=== PATIENT | male | born 1960 | race Caucasian/White ===

== ENCOUNTER 2016-10-15 12:38 | Emergency (ER) | payer MEDICAID ==
[~2016-10-15] VITALS: Ht 170.2 cm; Wt 64.7 kg
[~2016-10-15 12:38] MED LIST: LORA-474 PO
[2016-10-15 12:49] VITALS: BP 137/79; PULSE 73; RESP 16; TEMP 97.9; O2SAT 97
[2016-10-15] MEDS ORDERED: SODIUM CHLOR 0.9% 1000 ML INJ 1,000 ML IV SCH (13:01)
[2016-10-15 13:10] VITALS: O2SAT 97
[2016-10-15] MEDS ORDERED: OXYB5TAB10 PO (13:13)
[2016-10-15] MEDS ORDERED: GEMF600T PO (13:13)
[2016-10-15] MEDS ORDERED: MIRT30TA PO (13:13)
[2016-10-15] MEDS ORDERED: LISI10TA3 PO (13:13)
[2016-10-15] MEDS ORDERED: NOVONP2 SQ (13:13)
[2016-10-15] MEDS ORDERED: ATOR40TA16 PO (13:13)
[2016-10-15] MEDS ORDERED: DILA100C PO (13:13)
[2016-10-15] MEDS ORDERED: LORA2TAB7 PO (13:13)
[2016-10-15] MEDS ORDERED: XARE20TA PO (13:13)
[2016-10-15] MEDS ORDERED: ASAC800T PO (13:13)
[2016-10-15] MEDS ORDERED: LEVEMIR SQ (13:13)
[2016-10-15] MEDS ORDERED: OMEP20TA PO (13:13)
[2016-10-15] MEDS ORDERED: VIMP200T PO (13:13)
[2016-10-15] MEDS ORDERED: METF1000 PO (13:13)
[2016-10-15] MEDS ORDERED: SODIUM CHLORIDE 0.9% FLUSH 10 ML FLUSH IV FLUSH PRN (13:15)
[2016-10-15] MEDS ORDERED: MORPHINE SULFATE 4 MG/ML INJ IV PUSH ONE (13:15)
[2016-10-15] MEDS ORDERED: ONDANSETRON HCL 4 MG/2 ML VIAL IVP ONE (13:15)
[2016-10-15] MEDS ORDERED: FAMOTIDINE 20 MG/2 ML VIAL IV PUSH ONE (13:15)
--- NOTE | 2016-10-15 13:15 | PD ---
HPI Chief Complaint: Abdominal Pain Time Seen by Provider: 12:57 Travel History International Travel<30 days: No Contact w/Intl Traveler<30days: No Traveled to known affect area: No History of Present Illness HPI Patient is a 55-year-old male who presents to emergency room with complaints of abdominal pain. Patient reports that he has history of abdominal hernia surgery in the past by Dr Hinton. Reports that he also has history of gastroenteritis/colitis - reports that he went to Dr. Lane's office today for a follow up visit and told him of his abdominal pain. As per patient, he has had diffuse abdominal pain over the past few days. Reports no nausea or vomiting with his symptoms. Denies diarrhea, reports that he has been making a small amount of stool. Patient was instructed by his GI doctor to come straight to the emergency room for a CAT scan of the abdomen and pelvis as well as for lab work. PFSH Past Medical History Hx Anticoagulant Therapy: Yes Arthritis: No Asthma: No Anxiety: Yes Depression: No Heart Rhythm Problems: No Cancer: No Cardiovascular Problems: Yes (HTN) High Cholesterol: Yes Chest Pain: No Congestive Heart Failure: No COPD: No Cerebrovascular Accident: Yes Diabetes: Yes Patient Takes Glucophage: Yes Diminished Hearing: No Endocrine: Yes Gastrointestinal Disorders: Yes (PANCREATITIS) GERD: No Genitourinary: No Headaches: Yes Hiatal Hernia: Yes Hypertension: Yes Immune Disorder: No Implanted Vascular Access Dvce: No Kidney Stones: No Musculoskeletal: Yes (RUE) Neurologic: Yes (EEG STUDIES 11/2014) Reproductive: No Respiratory: No Migraines: Yes Renal Failure: No Seizures: Yes Sleep Apnea: No Thyroid Disease: Yes Ulcer: No Tetanus Vaccination: Unknown Past Surgical History Abdominal Surgery: Yes (HERNIA REPAIR 08/07/15) Other Surgery: No Social History Alcohol Use: No Tobacco Use: No Substance Use: No Allergies-Medications (Allergen,Severity, Reaction): Coded Allergies: Morphine (Verified Allergy, Unknown, 10/15/16) Reported Meds & Prescriptions Reported Meds & Active Scripts Active Reported Ditropan (Oxybutynin Chloride) 5 Mg Tab 5 Mg PO Q12HR Xarelto (Rivaroxaban) 20 Mg Tab 20 Mg PO DAILY Vimpat (Lacosamide) 200 Mg Tab 200 Mg PO BID Omeprazole 20 Mg Tab 20 Mg PO DAILY Novolin N Inj (Insulin Human NPH) 1,000 Unit/10 Ml Vial 2 Units SQ TID Mirtazapine 30 Mg Tab 30 Mg PO HS Metformin (Metformin HCl) 1,000 Mg Tab 1,000 Mg PO BIDPC With meals Lorazepam 2 Mg Tab 2 Mg PO HS Lisinopril 10 Mg Tab 10 Mg PO TID Levemir Inj (Insulin Detemir) 1,000 unit/ 10 ML Vial 15 Units SQ HS Do not mix with any other Insulin. Gemfibrozil 600 Mg Tab 600 Mg PO BIDAC Take 30 minutes prior to breakfast and dinner. Dilantin (Phenytoin Extended) 100 Mg Cap 100 Mg PO QID Atorvastatin (Atorvastatin Calcium) 40 Mg Tab 40 Mg PO HS Asacol HD (Mesalamine) 800 Mg Tab 800 Mg PO TID Swallow whole. Take on an empty stomach. Review of Systems General / Constitutional: No: Fever Eyes: No: Visual changes HENT: No: Headaches Cardiovascular: No: Chest Pain or Discomfort Respiratory: No: Shortness of Breath Gastrointestinal: Positive: Abdominal Pain, No: Nausea, Vomiting Genitourinary: No: Dysuria Musculoskeletal: No: Pain Skin: No Rash Neurologic: No: Weakness Psychiatric: No: Depression Endocrine: No: Polydipsia Hematologic/Lymphatic: No: Easy Bruising Physical Exam Narrative GENERAL: mild distress SKIN: Warm and dry. HEAD: Atraumatic. Normocephalic. EYES: Pupils equal and round. No injection or drainage. ENT: No nasal bleeding or discharge. Mucous membranes pink and moist. NECK: Trachea midline. No JVD. CARDIOVASCULAR: Regular rate and rhythm. No murmur appreciated. RESPIRATORY: No accessory muscle use. Clear to auscultation. Breath sounds equal bilaterally. GASTROINTESTINAL: Abdomen soft,diffusely tender, nondistended. Hepatic and splenic margins not palpable. MUSCULOSKELETAL: No obvious deformities. No clubbing. No cyanosis. No edema. NEUROLOGICAL: Awake and alert. No obvious cranial nerve deficits. Motor grossly within normal limits. Normal speech. PSYCHIATRIC: Appropriate mood and affect; insight and judgment normal. Data Data Last Documented VS Vital Signs Date Time Temp Pulse Resp B/P Pulse Ox O2 Delivery O2 Flow Rate FiO2 10/15/16 13:01 16 10/15/16 12:49 97.9 73 137/79 97 Orders Complete Blood Count With Diff (10/15/16 13:01) Comprehensive Metabolic Panel (10/15/16 13:01) Lipase (10/15/16 13:01) Prothrombin Time / Inr (Pt) (10/15/16 13:01) Act Partial Throm Time (Ptt) (10/15/16 13:01) Urinalysis - C+S If Indicated (10/15/16 13:01) Ct Abd/Pel W Iv Contrast(Rout) (10/15/16 13:01) Iv Access Insert/Monitor (10/15/16 13:01) Ecg Monitoring (10/15/16 13:01) Oximetry (10/15/16 13:01) Morphine Inj (Morphine Inj) (10/15/16 13:15) Ondansetron Inj (Zofran Inj) (10/15/16 13:15) Sodium Chlor 0.9% 1000 Ml Inj (Ns 1000 M (10/15/16 13:01) Sodium Chloride 0.9% Flush (Ns Flush) (10/15/16 13:15) Chest, Single Ap (10/15/16 13:01) Famotidine Inj (Pepcid Inj) (10/15/16 13:15) Oral Contrast - Adult (10/15/16 13:14) Diatrizoate Liq ( Gastroview Liq) (10/15/16 13:35) Ketorolac Inj (Toradol Inj) (10/15/16 14:00) Iohexol 350 Inj (Omnipaque 350 Inj) (10/15/16 14:45) Labs Laboratory Tests Test 10/15/16 10/15/16 13:14 13:29 White Blood Count 9.2 TH/MM3 Red Blood Count 4.52 MIL/MM3 Hemoglobin 9.5 GM/DL Hematocrit 30.3 % Mean Corpuscular Volume 67.1 FL Mean Corpuscular Hemoglobin 20.9 PG Mean Corpuscular Hemoglobin 31.2 % Concent Red Cell Distribution Width 14.5 % Platelet Count 454 TH/MM3 Mean Platelet Volume 8.7 FL Neutrophils (%) (Auto) 67.1 % Lymphocytes (%) (Auto) 24.4 % Monocytes (%) (Auto) 6.2 % Eosinophils (%) (Auto) 1.4 % Basophils (%) (Auto) 0.9 % Neutrophils # (Auto) 6.2 TH/MM3 Lymphocytes # (Auto) 2.2 TH/MM3 Monocytes # (Auto) 0.6 TH/MM3 Eosinophils # (Auto) 0.1 TH/MM3 Basophils # (Auto) 0.1 TH/MM3 CBC Comment AUTO DIFF Differential Comment AUTO DIFF CONFIRMED Prothrombin Time 11.4 SEC Prothromb Time International 1.0 RATIO Ratio Activated Partial 26.1 SEC Thromboplast Time Sodium Level 144 MEQ/L Potassium Level 4.1 MEQ/L Chloride Level 111 MEQ/L Carbon Dioxide Level 25.7 MEQ/L Anion Gap 7 MEQ/L Blood Urea Nitrogen 17 MG/DL Creatinine 0.73 MG/DL Estimat Glomerular Filtration 111 ML/MIN Rate Random Glucose 129 MG/DL Calcium Level 8.7 MG/DL Total Bilirubin 0.3 MG/DL Aspartate Amino Transf 13 U/L (AST/SGOT) Alanine Aminotransferase 18 U/L (ALT/SGPT) Alkaline Phosphatase 144 U/L Total Protein 6.5 GM/DL Albumin 3.1 GM/DL Lipase 250 U/L Urine Collection Type CLEAN CATCH Urine Color YELLOW Urine Turbidity CLEAR Urine pH 6.0 Urine Specific [place] 1.021 Urine Protein NEG mg/dL Urine Glucose (UA) NEG mg/dL Urine Ketones NEG mg/dL Urine Occult Blood NEG Urine Nitrite NEG Urine Bilirubin NEG Urine Leukocyte Esterase NEG Urine WBC 0-2 /hpf Microscopic Urinalysis Comment CULT NOT INDICATED MDM Medical Decision Making Medical Screen Exam Complete: Yes Emergency Medical Condition: Yes Interpretation(s) Vital Signs Date Time Temp Pulse Resp B/P Pulse Ox O2 Delivery O2 Flow Rate FiO2 10/15/16 13:01 16 10/15/16 12:49 97.9 73 16 137/79 97 Differential Diagnosis Abdominal hernia with incarceration, colitis, depression colitis, UTI, small bowel obstruction Narrative Course Patient is a 55-year-old male who presents to emergency room with complaints of abdominal pain for the past few days. Patient was sent in by Dr. Lane for lab work as well as for ct of his abdomen and pelvis for evaluation of his symptoms. Patient reports that he did have history of hernia repair by Dr. Hinton in the past, reports diffuse abdominal pain which has been persistent over the past few days. Laboratory Tests Test 10/15/16 10/15/16 13:14 13:29 White Blood Count 9.2 TH/MM3 (4.0-11.0) Red Blood Count 4.52 MIL/MM3 (4.50-5.90) Hemoglobin 9.5 GM/DL (13.0-17.0) Hematocrit 30.3 % (39.0-51.0) Mean Corpuscular Volume 67.1 FL (80.0-100.0) Mean Corpuscular Hemoglobin 20.9 PG (27.0-34.0) Mean Corpuscular Hemoglobin 31.2 % Concent (32.0-36.0) Red Cell Distribution Width 14.5 % (11.6-17.2) Platelet Count 454 TH/MM3 (150-450) Mean Platelet Volume 8.7 FL (7.0-11.0) Neutrophils (%) (Auto) 67.1 % (16.0-70.0) Lymphocytes (%) (Auto) 24.4 % (9.0-44.0) Monocytes (%) (Auto) 6.2 % (0.0-8.0) Eosinophils (%) (Auto) 1.4 % (0.0-4.0) Basophils (%) (Auto) 0.9 % (0.0-2.0) Neutrophils # (Auto) 6.2 TH/MM3 (1.8-7.7) Lymphocytes # (Auto) 2.2 TH/MM3 (1.0-4.8) Monocytes # (Auto) 0.6 TH/MM3 (0-0.9) Eosinophils # (Auto) 0.1 TH/MM3 (0-0.4) Basophils # (Auto) 0.1 TH/MM3 (0-0.2) CBC Comment AUTO DIFF Differential Comment AUTO DIFF CONFIRMED Prothrombin Time 11.4 SEC (9.8-11.6) Prothromb Time International 1.0 RATIO Ratio Activated Partial 26.1 SEC Thromboplast Time (24.3-30.1) Sodium Level 144 MEQ/L (136-145) Potassium Level 4.1 MEQ/L (3.5-5.1) Chloride Level 111 MEQ/L (98-107) Carbon Dioxide Level 25.7 MEQ/L (21.0-32.0) Anion Gap 7 MEQ/L (5-15) Blood Urea Nitrogen 17 MG/DL (7-18) Creatinine 0.73 MG/DL (0.60-1.30) Estimat Glomerular Filtration 111 ML/MIN Rate (>89) Random Glucose 129 MG/DL (74-106) Calcium Level 8.7 MG/DL (8.5-10.1) Total Bilirubin 0.3 MG/DL (0.2-1.0) Aspartate Amino Transf 13 U/L (15-37) (AST/SGOT) Alanine Aminotransferase 18 U/L (12-78) (ALT/SGPT) Alkaline Phosphatase 144 U/L (45-117) Total Protein 6.5 GM/DL (6.4-8.2) Albumin 3.1 GM/DL (3.4-5.0) Lipase 250 U/L (73-393) Urine Collection Type CLEAN CATCH Urine Color YELLOW (YELLW/STRAW) Urine Turbidity CLEAR (CLEAR) Urine pH 6.0 (5.0-8.5) Urine Specific [place] 1.021 (1.002-1.035) Urine Protein NEG mg/dL (NEG-TRACE) Urine Glucose (UA) NEG mg/dL (NEG) Urine Ketones NEG mg/dL (NEG) Urine Occult Blood NEG (NEG) Urine Nitrite NEG (NEG) Urine Bilirubin NEG (NEG) Urine Leukocyte Esterase NEG (NEG) Urine WBC 0-2 /hpf (0-5) Microscopic Urinalysis Comment CULT NOT INDICATED Labs as well as CT of the abdomen and pelvis ordered for further evaluation symptoms. Vital Signs Date Time Temp Pulse Resp B/P Pulse Ox O2 Delivery O2 Flow Rate FiO2 10/15/16 13:01 16 10/15/16 12:49 97.9 73 16 137/79 97 Last Impressions Chest X-Ray 10/15/16 1301 Signed Impressions: Service Date/Time: Saturday, October 15, 2016 13:04 - CONCLUSION: 1. No acute cardiopulmonary disease. Saqib Paez MD Abdomen/Pelvis CT 10/15/16 1301 Signed Impressions: Service Date/Time: Saturday, October 15, 2016 14:24 - CONCLUSION: 1. No acute findings in the abdomen or pelvis. 2. Polyp or calculus in the gallbladder. 3. Enlarged prostate, increased in size from prior study 2014. 4. Periumbilical hernia no longer seen. 5. Fat-containing left inguinal hernia unchanged. Chung Parra MD Patient reevaluated, patient reports that he had a bowel movement and now feels much better. Patient reports that he has complete resolution of symptoms at this time. I did review all labs and all studies with patient in detail including all incidental findings. A copy patient of his CT report was given to him as he will need to follow-up with all the incidental findings. Signs and symptoms of when to return to the emergency room as needed patient. 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
[2016-10-15 13:27] LABS: AUTOMATED NEUTROPHIL # 6.2 TH/MM3 (1.8-7.7); BASOPHIL # 0.1 TH/MM3 (0-0.2); BASOPHIL % 0.9 % (0.0-2.0); EOSINOPHIL # 0.1 TH/MM3 (0-0.4); EOSINOPHIL % 1.4 % (0.0-4.0); HEMATOCRIT 30.3 % (39.0-51.0); LYMPH % 24.4 % (9.0-44.0); LYMPHOCYTE # 2.2 TH/MM3 (1.0-4.8); MEAN CELL VOLUME 67.1 FL (80.0-100.0); MEAN CORPUSCULAR HEMOGLOBIN 20.9 PG (27.0-34.0); MEAN CORPUSCULAR HGB CONC 31.2 % (32.0-36.0); MONO % 6.2 % (0.0-8.0); NEUT % 67.1 % (16.0-70.0); PLATELET COUNT 454 TH/MM3 (150-450); RED BLOOD COUNT 4.52 MIL/MM3 (4.50-5.90); RED CELL DISTRIBUTION WIDTH 14.5 % (11.6-17.2); WHITE BLOOD COUNT 9.2 TH/MM3 (4.0-11.0)
[2016-10-15 13:28] LABS: CHLORIDE 111 MEQ/L (98-107); HEMO FLAGS AUTO DIFF; POTASSIUM 4.1 MEQ/L (3.5-5.1); SODIUM (NA) 144 MEQ/L (136-145)
[2016-10-15 13:32] LABS: APTT (PATIENT) 26.1 SEC (24.3-30.1); PROTHROMBIN TIME - PATIENT 11.4 SEC (9.8-11.6)
[2016-10-15 13:33] LABS: ANION GAP 7 MEQ/L (5-15); BICARBONATE 25.7 MEQ/L (21.0-32.0); BLOOD UREA NITROGEN 17 MG/DL (7-18)
[2016-10-15 13:35] LABS: BLOOD, URINE NEG (NEG); GLUCOSE,URINE NEG (NEG); KETONE, URINE NEG (NEG); METHOD OF COLLECTION CLEAN CATCH; NITRITE,URINE NEG (NEG); URINE COLOR YELLOW (YELLW/STRAW)
[2016-10-15] MEDS ORDERED: DIATRIZOATE MEGLUM/DIATRIZOATE SOD 9 ML CUP ONE (13:35)
[2016-10-15 13:36] LABS: ALT (GPT) 18 U/L (12-78); AST (GOT) 13 U/L (15-37); GLOMERULAR FILTRATION RATE 111 ML/MIN (>89)
[2016-10-15 13:38] LABS: TOTAL BILIRUBIN ADULT 0.3 MG/DL (0.2-1.0)
[2016-10-15 13:39] LABS: ALKALINE PHOSPHATASE 144 U/L (45-117)
[2016-10-15 13:40] LABS: COMMENT (UR) CULT NOT INDICATED; CULTURE IF INDICATED CULT NOT INDICATED; WBC, URINE 0-2 /hpf (0-5)
--- NOTE | 2016-10-15 13:43 | RADHPO ---
EXAM DATE/TIME: 10/15/2016 13:04 [facility] COMPARISON: CHEST SINGLE AP, February 10, 2016, 20:19. INDICATIONS : Epigastric pain and cold symptoms. MEDICAL HISTORY : Hypercholesterolemia. Rheumatoid arthritis. Seizures. Hypertension. Cerebrovascular disease. Str meenakshi. Diabetic. SURGICAL HISTORY : Hernia repair. ENCOUNTER: Initial ACUITY: 2 days PAIN SCORE: 8/10 LOCATION: chest FINDINGS: A single view of the chest demonstrates the lungs to be symmetrically aerated without evidence of mas s, infiltrate or effusion. The cardiomediastinal contours are unremarkable. Osseous structures are intact. CONCLUSION: 1. No acute cardiopulmonary disease. Saqib Paez MD on October 15, 2016 at 13:41 Board Certified Radiologist. This report was verified electronically.
[2016-10-15 13:54] LABS: SCAN/DIFF AUTO DIFF CONFIRMED
[2016-10-15] MEDS ORDERED: KETOROLAC TROMETHAMINE 30 MG/ML (IVP) VIAL IV PUSH ONE (14:00)
[2016-10-15] MEDS ORDERED: IOHEXOL 350 MG/ML 10 ML VIAL (for RAD DIAG) IV ONE (14:45)
--- NOTE | 2016-10-15 15:25 | RADHPO ---
EXAM DATE/TIME: 10/15/2016 14:24 [facility] COMPARISON: CT ABDOMEN & PELVIS W CONTRAST, January 24, 2015, 23:01. INDICATIONS : Diffuse abdominal pain. IV CONTRAST: 95 cc Omnipaque 350 (iohexol) IV ORAL CONTRAST: Prescribed oral contrast ingested. RADIATION DOSE: 8.50 CTDIvol (mGy) MEDICAL HISTORY : Pancreatitis. Hernia, hiatal. Hypertension.Diabetes. Colitis. SURGICAL HISTORY : Hernia repair. ENCOUNTER: Initial ACUITY: 2 days PAIN SCALE: 10/10 LOCATION: All quadrants. TECHNIQUE: Volumetric scanning of the abdomen and pelvis was performed. Using automated exposure control and ad justment of the mA and/or kV according to patient size, radiation dose was kept as low as reasonably achievable to obtain optimal diagnostic quality images. FINDINGS: LOWER LUNGS: The visualized lower lungs are clear. LIVER: Homogeneous density without lesion. There is no dilation of the biliary tree. 3 mm calculus or polyp in the gallbladder. No pericholecystic inflammatory changes. SPLEEN: Mild splenomegaly measuring 13 cm in craniocaudal dimension. No focal masses. PANCREAS: Within normal limits. KIDNEYS: Normal in size and shape. There is no mass, stone or hydronephrosis. ADRENAL GLANDS: Within normal limits. VASCULAR: Diffuse aortic calcification. Diameter within normal limits. BOWEL/MESENTERY: No evidence of bowel dilatation. No free air or free fluid. Appendix within normal limits. ABDOMINAL WALL: Periumbilical anterior abdominal wall hernia is no longer seen. RETROPERITONEUM: There is no lymphadenopathy. BLADDER: No wall thickening or mass. REPRODUCTIVE: Enlarged prostate measuring 5.1 cm. Increased in size from 4.4 cm on the prior study of 01/24/2015. INGUINAL: Fat-containing left inguinal hernia unchanged. MUSCULOSKELETAL: Within normal limits for patient age. CONCLUSION: 1. No acute findings in the abdomen or pelvis. 2. Polyp or calculus in the gallbladder. 3. Enlarged prostate, increased in size from prior study 2014. 4. Periumbilical hernia no longer seen. 5. Fat-containing left inguinal hernia unchanged. Chung Parra MD on October 15, 2016 at 15:14 Board Certified Radiologist. This report was verified electronically.
[2016-10-15 15:48] VITALS: BP 140/80
== END 2016-10-15 16:03 | disposition home or self-care (01) ==
LOC: PHED 12:38
DX: R10.84 Generalized abdominal pain (principal); D64.9 Anemia, unspecified; K40.91 Unilateral inguinal hernia, without obstruction or gangrene, recurrent; N40.0 Benign prostatic hyperplasia without lower urinary tract symptoms; I10 Essential (primary) hypertension; E11.9 Type 2 diabetes mellitus without complications; Z79.4 Long term (current) use of insulin; Z86.73 Personal history of transient ischemic attack (TIA), and cerebral infarction without residual deficits; Z79.01 Long term (current) use of anticoagulants
CPT/HCPCS: 71010; 74177; 80053; 81001; 83690; 85025; 85610; 85730; 96361; 96374; 96375; 99284; J1885; J2405; J7030; Q9963; Q9967

== ENCOUNTER 2016-11-18 06:31 | Observation (INO) | payer MEDICAID ==
[~2016-11-18] VITALS: Ht 170.2 cm; Wt 65.0 kg
[~2016-11-18 06:31] MED LIST changes: +ASAC800T PO; +ATOR40TA16 PO; +DILA100C PO; +GEMF600T PO; +LEVEMIR SQ; +LISI10TA3 PO; -LORA-474 PO; +LORA2TAB7 PO; +METF1000 PO; +MIRT30TA PO; +NOVONP2 SQ; +OMEP20TA PO; +OXYB5TAB10 PO; +VIMP200T PO; +XARE20TA PO
[2016-11-18 06:37] VITALS: BP 122/74; PULSE 81; RESP 20; TEMP 98.8; O2SAT 97
--- NOTE | 2016-11-18 06:50 | PD ---
HPI Chief Complaint: Chest Pain Time Seen by Provider: 06:40 Travel History International Travel<30 days: No Contact w/Intl Traveler<30days: No Traveled to known affect area: No History of Present Illness HPI The patient is a 55 year old male who presents to the [facility] emergency department with a history of chest pain that began prior to arrival when he got up to go the bathroom. The patient reports that he was awake when it started. He reports pain was a 9-10 out of 10 in severity. He reports that the pain is in the center of his chest and radiated across his chest. He denies having any radiation into his neck or arm. He does report having chronic right arm pain related to a prior stroke and hemiparesis. The patient reports that the pain lasted for an hour. The patient reports that en route to this facility the pain resolved. The patient was brought in by ambulance services. No nitroglycerin was administered prior to arrival. The patient was however given aspirin 162 mg by mouth 1. The patient reports that he has a history of anxiety, however this pain was different. He reports having associated shortness of breath. He denies having any diaphoresis, nausea, vomiting associated with this. The patient denies any prior history of myocardial infarction, however he does report that he has an enlarged heart. The patient does have a history of ischemic stroke affecting the right side with hemiparesis. He is chronically anticoagulated on Xarelto. The patient also has a history of seizures related to his prior stroke. On review of systems, the patient's denies any recent fevers, cough, congestion, neck pain, abdominal pain, vomiting, urinary symptoms, or new neurologic symptoms. The patient does however report on review of systems that he has a daily loose stool. He denies any blood in his stool or black or tarry stools. He reports that he takes milk of magnesia daily. [facility] Past Medical History Narrative Medical The patient's past medical history is significant for an ischemic stroke with residual right upper and right lower extremity weakness, history of hypertension , hyperlipidemia, diabetes mellitus, seizure disorder, history of DVT, history of being chronically anticoagulated on Xarelto. Hx Anticoagulant Therapy: Yes Arthritis: No Asthma: No Anxiety: Yes Depression: No Heart Rhythm Problems: No Cancer: No Cardiovascular Problems: Yes (HTN) High Cholesterol: Yes Chest Pain: No Congestive Heart Failure: No COPD: No Cerebrovascular Accident: Yes Diabetes: Yes Patient Takes Glucophage: Yes Diminished Hearing: No Endocrine: Yes Gastrointestinal Disorders: Yes (PANCREATITIS) GERD: No Genitourinary: No Headaches: Yes Hiatal Hernia: Yes Hypertension: Yes Immune Disorder: No Implanted Vascular Access Dvce: No Kidney Stones: No Musculoskeletal: Yes (RUE) Neurologic: Yes (EEG STUDIES 11/2014) Reproductive: No Respiratory: No Migraines: Yes Renal Failure: No Seizures: Yes Sleep Apnea: No Thyroid Disease: Yes Ulcer: No Past Surgical History Narrative Surgical The patient's past surgical history is significant for a ventral abdominal hernia repair. Abdominal Surgery: Yes (HERNIA REPAIR 08/07/15) Other Surgery: No Social History Alcohol Use: Yes (OCC) Tobacco Use: No Substance Use: No Allergies-Medications (Allergen,Severity, Reaction): Coded Allergies: Morphine (Verified Allergy, Unknown, 11/18/16) Reported Meds & Prescriptions Reported Meds & Active Scripts Active Reported Ditropan (Oxybutynin Chloride) 5 Mg Tab 5 Mg PO Q12HR Xarelto (Rivaroxaban) 20 Mg Tab 20 Mg PO DAILY Vimpat (Lacosamide) 200 Mg Tab 200 Mg PO BID Omeprazole 20 Mg Tab 20 Mg PO DAILY Novolin N Inj (Insulin Human NPH) 1,000 Unit/10 Ml Vial 2 Units SQ TID Mirtazapine 30 Mg Tab 30 Mg PO HS Metformin (Metformin HCl) 1,000 Mg Tab 1,000 Mg PO BIDPC With meals Lorazepam 2 Mg Tab 1 Mg PO HS Lisinopril 10 Mg Tab 10 Mg PO TID Levemir Inj (Insulin Detemir) 1,000 unit/ 10 ML Vial 15 Units SQ HS Do not mix with any other Insulin. Gemfibrozil 600 Mg Tab 600 Mg PO BIDAC Take 30 minutes prior to breakfast and dinner. Dilantin (Phenytoin Extended) 100 Mg Cap 100 Mg PO QID Atorvastatin (Atorvastatin Calcium) 40 Mg Tab 40 Mg PO HS Asacol HD (Mesalamine) 800 Mg Tab 800 Mg PO TID Swallow whole. Take on an empty stomach. Review of Systems General / Constitutional: Positive: Fever Eyes: No: Visual changes HENT: No: Headaches, Neck Stiffness, Neck Pain Cardiovascular: Positive: Chest Pain or Discomfort, Dyspnea on exertion Respiratory: Positive: Shortness of Breath Gastrointestinal: Positive: Diarrhea, No: Nausea, Vomiting, Abdominal Pain, Hematemesis, Hematochezia, Constipation, Changes in Bowel Habits, Indigestion, Loss of Appetite Genitourinary: No: Dysuria Musculoskeletal: No: Pain Skin: No Rash Neurologic: Positive: Focal Abnormalities (residual right upper and lower extremity weakness related to prior stroke), No: Weakness, Change in Mentation , Slurred Speech, Sensory Disturbance Psychiatric: Positive: Anxiety, Mood Disorder, No: Depression, Substance Abuse Endocrine: No: Polydipsia Hematologic/Lymphatic: No: Easy Bruising Physical Exam Narrative General: The patient is a well-developed well-nourished male in no acute distress, reportedly chest pain-free at this time. Head and Neck exam: Head is normocephalic atraumatic. Eyes: EOMI, pupils are equal round and reactive to light. Nose: Midline septum with pink mucous membranes Mouth: Dentition unremarkable. Moist mucus membranes. Posterior oropharynx is not erythematous. No tonsillar hypertrophy. Uvula midline. Airway patent. Neck: No palpable lymphadenopathy. No nuchal rigidity. No thyromegaly. Cardiovascular: Regular rate and rhythm without murmurs, gallops, or rubs. Lungs: Clear to auscultation bilaterally. No wheezes, rhonchi, or rales. Abdomen: Soft, without tenderness to palpation in all 4 quadrants of the abdomen. No guarding, rebound, or rigidity. Normal bowel sounds are audible. No tenderness on palpation of McBurney's point. The patient has scarring in the center of the abdomen on examination related to an abdominal hernia repair. No recurrent hernia is palpated. Extremities: No clubbing, cyanosis, or edema. 2+ pulses in all 4 extremities. No calf tenderness on palpation. Back: No spinous process tenderness to palpation. No costovertebral angle tenderness to palpation. Neurologic Exam: No new weakness is noted. The patient has residual hemiparesis of the right upper extremity with contracture, residual weakness of the right lower extremity. The patient has a mild expressive aphasia that he is able to overcome with slow speaking. Skin Exam: Along the lower extremities the patient has 1-2 mm erythematous papules which he reports is related to insect bites from walking in the [place] recently. Data Data Last Documented VS Vital Signs Date Time Temp Pulse Resp B/P Pulse Ox O2 Delivery O2 Flow Rate FiO2 11/18/16 06:37 98.8 81 20 122/74 97 Orders Electrocardiogram (11/18/16 06:48) Complete Blood Count With Diff (11/18/16 06:48) Comprehensive Metabolic Panel (11/18/16 06:48) Creatine Kinase (Cpk) (11/18/16 06:48) Ckmb (Isoenzyme) Profile (11/18/16 06:48) Troponin I (11/18/16 06:48) B-Type Natriuretic Peptide (11/18/16 06:48) Lipase (11/18/16 06:48) Urinalysis - C+S If Indicated (11/18/16 06:48) Magnesium (Mg) (11/18/16 06:48) Chest, Single Ap (11/18/16 06:48) Iv Access Insert/Monitor (11/18/16 06:48) Ecg Monitoring (11/18/16 06:48) Oximetry (11/18/16 06:48) Phenytoin (Dilantin) (11/18/16 06:50) MDM Medical Decision Making Medical Screen Exam Complete: Yes Emergency Medical Condition: Yes Medical Record Reviewed: Yes Differential Diagnosis Acute coronary syndrome, versus anxiety disorder, versus acid reflux, versus pneumothorax, versus pneumonia Narrative Course During the course of the patients emergency department visit, the patients history, examination, and differential diagnosis were reviewed with the patient. The patient had IV access obtained and blood work sent for analysis. The patient states on a habilitation assistant with oximetry and blood pressure monitoring. The patient had an EKG done on arrival that shows a sinus rhythm heart rate of 84, no acute ST segment elevation or depression is noted. QRS duration 109 ms, QTC 427 ms. The patient was provided aspirin 162 mg by mouth prior to arrival by ambulance services. The patient is chest pain-free currently, however given the severity of the chest pain and how he reports that it is different from his chest pain related to anxiety in the past, the patient will be given 1 inch of Nitropaste chest wall. The patients laboratory studies and imaging studies are pending at the conclusion of my shift. The patient's case will be checked out to the oncoming emergency physician to disposition based on the conclusion of his workup. Diagnosis Primary Impression: Chest pain Qualified Code: R07.9 - Chest pain, unspecified type Susan Bloom MD November 18, 2016 06:50 Susan Bloom MD November 18, 2016 06:50
[2016-11-18 07:07] LABS: AUTOMATED NEUTROPHIL # 4.6 TH/MM3 (1.8-7.7); BASOPHIL # 0.1 TH/MM3 (0-0.2); BASOPHIL % 0.6 % (0.0-2.0); EOSINOPHIL # 0.2 TH/MM3 (0-0.4); EOSINOPHIL % 2.1 % (0.0-4.0); HEMATOCRIT 27.7 % (39.0-51.0); LYMPH % 34.8 % (9.0-44.0); LYMPHOCYTE # 2.9 TH/MM3 (1.0-4.8); MEAN CELL VOLUME 63.6 FL (80.0-100.0); MEAN CORPUSCULAR HEMOGLOBIN 20.7 PG (27.0-34.0); MEAN CORPUSCULAR HGB CONC 32.5 % (32.0-36.0); MONO % 7.5 % (0.0-8.0); PLATELET COUNT 450 TH/MM3 (150-450); RED BLOOD COUNT 4.35 MIL/MM3 (4.50-5.90); RED CELL DISTRIBUTION WIDTH 15.6 % (11.6-17.2); WHITE BLOOD COUNT 8.4 TH/MM3 (4.0-11.0)
[2016-11-18 07:09] LABS: HEMO FLAGS AUTO DIFF
[2016-11-18 07:28] LABS: ALT (GPT) 21 U/L (12-78); ANION GAP 10 MEQ/L (5-15); AST (GOT) 23 U/L (15-37); BICARBONATE 23.2 MEQ/L (21.0-32.0); BLOOD UREA NITROGEN 39 MG/DL (7-18); CHLORIDE 108 MEQ/L (98-107); GLOMERULAR FILTRATION RATE 62 ML/MIN (>89); MAGNESIUM 2.4 MG/DL (1.5-2.5); POTASSIUM 3.9 MEQ/L (3.5-5.1); SODIUM (NA) 141 MEQ/L (136-145)
[2016-11-18 07:32] LABS: ALKALINE PHOSPHATASE 122 U/L (45-117); CREATINE KINASE 153 U/L (39-308); TOTAL BILIRUBIN ADULT 0.2 MG/DL (0.2-1.0)
--- NOTE | 2016-11-18 07:39 | RADRPT ---
EXAM DATE/TIME: 11/18/2016 07:30 [place] COMPARISON: No previous studies available for comparison. INDICATIONS : Midsternal chest pains with shortness of breath. MEDICAL HISTORY : Stroke. Hypercholesterolemia. Seizures SURGICAL HISTORY : Hernia repair ENCOUNTER: Initial ACUITY: 1 day PAIN SCORE: 9/10 LOCATION: Bilateral chest FINDINGS: A single view of the chest demonstrates the lungs to be symmetrically aerated without evidence of mas s, infiltrate or effusion. The cardiomediastinal contours are unremarkable. Osseous structures are intact. CONCLUSION: No acute disease. Kip Lezama MD on November 18, 2016 at 7:37 Board Certified Radiologist. This report was verified electronically.
[2016-11-18 07:44] LABS: CKMB 2.2 NG/ML (0.5-3.6)
[2016-11-18 07:46] LABS: ACANTHOCYTES OCC (NORMAL); KERATOCYTES OCC (NORMAL); OVALOCYTES 2+ (NORMAL); TEARDROP RBCS 1+ (NORMAL)
[2016-11-18 07:47] LABS: PLATELET ESTIMATE SMEAR NORMAL (NORMAL); PLATELET MORPHOLOGY NORMAL (NORMAL); SCAN/DIFF AUTO DIFF CONFIRMED
--- NOTE | 2016-11-18 07:51 | PD ---
Data Data Last Documented VS Vital Signs Date Time Temp Pulse Resp B/P Pulse Ox O2 Delivery O2 Flow Rate FiO2 11/18/16 06:37 98.8 81 20 122/74 97 Orders Electrocardiogram (11/18/16 06:48) Complete Blood Count With Diff (11/18/16 06:48) Comprehensive Metabolic Panel (11/18/16 06:48) Creatine Kinase (Cpk) (11/18/16 06:48) Ckmb (Isoenzyme) Profile (11/18/16 06:48) Troponin I (11/18/16 06:48) B-Type Natriuretic Peptide (11/18/16 06:48) Lipase (11/18/16 06:48) Urinalysis - C+S If Indicated (11/18/16 06:48) Magnesium (Mg) (11/18/16 06:48) Chest, Single Ap (11/18/16 06:48) Iv Access Insert/Monitor (11/18/16 06:48) Ecg Monitoring (11/18/16 06:48) Oximetry (11/18/16 06:48) CKMB (11/18/16 06:13) CKMB% (11/18/16 06:13) Sodium Chlor 0.9% 1000 Ml Inj (Ns 1000 M (11/18/16 08:00) Phenytoin (Dilantin) (11/18/16 06:13) Labs Laboratory Tests Test 11/18/16 11/18/16 06:13 07:20 White Blood Count 8.4 TH/MM3 Red Blood Count 4.35 MIL/MM3 Hemoglobin 9.0 GM/DL Hematocrit 27.7 % Mean Corpuscular Volume 63.6 FL Mean Corpuscular Hemoglobin 20.7 PG Mean Corpuscular Hemoglobin 32.5 % Concent Red Cell Distribution Width 15.6 % Platelet Count 450 TH/MM3 Mean Platelet Volume 10.3 FL Neutrophils (%) (Auto) 55.0 % Lymphocytes (%) (Auto) 34.8 % Monocytes (%) (Auto) 7.5 % Eosinophils (%) (Auto) 2.1 % Basophils (%) (Auto) 0.6 % Neutrophils # (Auto) 4.6 TH/MM3 Lymphocytes # (Auto) 2.9 TH/MM3 Monocytes # (Auto) 0.6 TH/MM3 Eosinophils # (Auto) 0.2 TH/MM3 Basophils # (Auto) 0.1 TH/MM3 CBC Comment AUTO DIFF Differential Comment AUTO DIFF CONFIRMED Platelet Estimate NORMAL Platelet Morphology Comment NORMAL Tear Drop Cells 1+ Ovalocytes 2+ Acanthocytes OCC Keratocytes OCC Sodium Level 141 MEQ/L Potassium Level 3.9 MEQ/L Chloride Level 108 MEQ/L Carbon Dioxide Level 23.2 MEQ/L Anion Gap 10 MEQ/L Blood Urea Nitrogen 39 MG/DL Creatinine 1.21 MG/DL Estimat Glomerular Filtration 62 ML/MIN Rate Random Glucose 195 MG/DL Calcium Level 8.2 MG/DL Magnesium Level 2.4 MG/DL Total Bilirubin 0.2 MG/DL Aspartate Amino Transf 23 U/L (AST/SGOT) Alanine Aminotransferase 21 U/L (ALT/SGPT) Alkaline Phosphatase 122 U/L Total Creatine Kinase 153 U/L Creatine Kinase MB 2.2 NG/ML Troponin I LESS THAN 0.02 NG/ML B-Type Natriuretic Peptide 37 PG/ML Total Protein 6.4 GM/DL Albumin 3.4 GM/DL Lipase 600 U/L Urine Color YELLOW Urine Turbidity CLEAR Urine pH 5.5 Urine Specific [place] 1.028 Urine Protein TRACE mg/dL Urine Glucose (UA) NEG mg/dL Urine Ketones NEG mg/dL Urine Occult Blood NEG Urine Nitrite NEG Urine Bilirubin NEG Urine Urobilinogen LESS THAN 2.0 MG/DL Urine Leukocyte Esterase NEG Urine WBC 1 /hpf Urine Squamous Epithelial <1 /hpf Cells Urine Hyaline Casts 4 /lpf Urine Mucus FEW /lpf Microscopic Urinalysis Comment CULT NOT INDICATED MDM Medical Record Reviewed: Yes Supervised Visit with ROGER: No Narrative Course CBC & BMP Diagram 11/18/16 06:13 LFTs: normal Lipase: 600 Tn < 0.02 UA: no UTI BNP 37 Pt has pancreatitis and abdominal tenderness. Lipase at 600. Etiology unknown however pt has history hypertriglyceridemia. Last etoh was approx 1 month prior. IVF, pain control, further dx as considered appropriate. d/w Dr Ricky Archer at approx 0800. Diagnosis Primary Impression: Chest pain Qualified Code: R07.9 - Chest pain, unspecified type Additional Impressions: Pancreatitis Qualified Code: K85.90 - Acute pancreatitis, unspecified complication status, unspecified pancreatitis type Prerenal azotemia Admitting Information Admitting Physician Requests: Observation Ron Wahl MD November 18, 2016 07:50
[2016-11-18 07:54] LABS: BLOOD, URINE NEG (NEG); COMMENT (UR) CULT NOT INDICATED; CULTURE IF INDICATED CULT NOT INDICATED; GLUCOSE,URINE NEG (NEG); HYALINE CAST, URINE 4 /lpf (RARE); KETONE, URINE NEG (NEG); MUCUS URINE FEW /lpf (OCC); NITRITE,URINE NEG (NEG); PH, URINE 5.5 (5.0-8.5); SQUAMOUS EPITHELIAL CELL URINE <1 /hpf (0-5); URINE COLOR YELLOW (YELLW/STRAW)
[2016-11-18] MEDS ORDERED: SODIUM CHLOR 0.9% 1000 ML INJ 1,000 ML IV ONE (08:00)
[2016-11-18 08:09] VITALS: BP 123/78; PULSE 60; RESP 20; O2SAT 97
[2016-11-18] MEDS ORDERED: ACETAMINOPHEN 325 MG TAB PO PRN (08:15)
[2016-11-18] MEDS ORDERED: ONDANSETRON HCL 4 MG/2 ML VIAL IVP PRN (08:15)
[2016-11-18] MEDS ORDERED: SODIUM CHLORIDE 0.9% FLUSH 10 ML FLUSH IV FLUSH PRN (08:15)
[2016-11-18] MEDS ORDERED: NALOXONE HCL 0.4 MG/ML AMP IV PRN (08:15)
[2016-11-18] MEDS ORDERED: MAGNESIUM HYDROXIDE SUSP 30 ML CUP PO PRN (08:15)
[2016-11-18] MEDS ORDERED: SODIUM CHLORIDE 0.9% FLUSH 10 ML FLUSH IV FLUSH SCH (09:00)
[2016-11-18] MEDS: SODIUM CHLOR 0.9% 1000 ML INJ 1,000 ML IV SCH ×2 (09:07→12:46)
[2016-11-18] MEDS ORDERED: ENOXAPARIN SODIUM 40 MG/0.4 ML SYRINGE SQ SCH (10:00)
[2016-11-18 10:45] VITALS: O2SAT 99
[2016-11-18 10:50] VITALS: BP 113/55; PULSE 50; RESP 18; O2SAT 97
[2016-11-18] MEDS ORDERED: DEXTROSE 50% IN WATER 50 ML VIAL(D50) IV PUSH PRN (12:00)
[2016-11-18] MEDS ORDERED: GLUCAGON 1 MG/ML VIAL OTHER PRN (12:00)
--- NOTE | 2016-11-18 12:02 | HHI.HP ---
[facility] Jacobo De Leon DO Admission Diagnosis Pancreatitis, Prerenal Azotemia Diagnoses: Chief Complaint: Abdominal pain Travel History International Travel<30 Days: No Contact w/Intl Traveler <30 Da: No Traveled to Known Affected Are: No History of Present Illness Mr. Meza is a pleasant 55 year old male with a history of seizure activity , DM, HTN and off and on diarrhea, constipation who presented to the ED due to abdominal pain. Patient started having diffuse abdominal pain last night. Pain did not radiate. Patient denies any nausea, vomiting. He had a BM yesterday. No fever, chills. He usually takes Milk of Mag for constipation. He denies any changes to bladder habits. No weight change. By the time, this interview was completed, patient reported significant improvement after a bowel movement. He also tolerated food well. Review of Systems Except as stated in HPI: all other systems reviewed are Neg Past Family Social History Past Medical History CVA 2013 Diabetes HTN Seizure activity Hyperlipidemia Past Surgical History Hernia surgery Reported Medications Ditropan (Oxybutynin Chloride) 5 Mg Tab 5 Mg PO Q12HR Xarelto (Rivaroxaban) 20 Mg Tab 20 Mg PO DAILY Vimpat (Lacosamide) 200 Mg Tab 200 Mg PO BID Omeprazole 20 Mg Tab 20 Mg PO DAILY Novolin N Inj (Insulin Human NPH) 1,000 Unit/10 Ml Vial 2 Units SQ TID Mirtazapine 30 Mg Tab 30 Mg PO HS Metformin (Metformin HCl) 1,000 Mg Tab 1,000 Mg PO BIDPC With meals Lorazepam 2 Mg Tab 1 Mg PO HS Lisinopril 10 Mg Tab 10 Mg PO TID Levemir Inj (Insulin Detemir) 1,000 unit/ 10 ML Vial 15 Units SQ HS Do not mix with any other Insulin. Gemfibrozil 600 Mg Tab 600 Mg PO BIDAC Take 30 minutes prior to breakfast and dinner. Dilantin (Phenytoin Extended) 100 Mg Cap 100 Mg PO QID Atorvastatin (Atorvastatin Calcium) 40 Mg Tab 40 Mg PO HS Asacol HD (Mesalamine) 800 Mg Tab 800 Mg PO TID Swallow whole. Take on an empty stomach. Allergies: Coded Allergies: Morphine (Verified Allergy, Unknown, 11/18/16) Family History Mom - diabetes Social History No tobacco, illicit drugs. Drinks socially. Physical Exam Vital Signs Vital Signs Date Time Temp Pulse Resp B/P Pulse Ox O2 Delivery O2 Flow Rate FiO2 11/18/16 10:45 99 Nasal Cannula 21 11/18/16 08:09 60 20 123/78 97 Room Air 11/18/16 06:37 98.8 81 20 122/74 97 Physical Exam GENERAL: This is a well-nourished, well-developed patient, in no apparent distress. SKIN: No rashes, ecchymoses or lesions. Warm and dry. HEAD: Atraumatic. Normocephalic. No temporal or scalp tenderness. EYES: Pupils equal round and reactive. No injection or drainage. ENT: Nose without bleeding, purulent drainage or septal hematoma. Airway patent. NECK: Trachea midline. No lymphadenopathy. Supple, nontender, no meningeal signs. CARDIOVASCULAR: Regular rate and rhythm without murmurs, gallops, or rubs. No JVD. RESPIRATORY: Clear to auscultation. Breath sounds equal bilaterally. No wheezes , rales, or rhonchi. GASTROINTESTINAL: Abdomen soft, non-tender, nondistended. No guarding. MUSCULOSKELETAL: Extremities without clubbing, cyanosis, or edema. NEUROLOGICAL: Awake and alert. Cranial nerves II through XII intact. No focal neurological deficits. Normal speech. Laboratory Laboratory Tests Test 11/18/16 11/18/16 06:13 07:20 White Blood Count 8.4 Red Blood Count 4.35 Hemoglobin 9.0 Hematocrit 27.7 Mean Corpuscular Volume 63.6 Mean Corpuscular Hemoglobin 20.7 Mean Corpuscular Hemoglobin 32.5 Concent Red Cell Distribution Width 15.6 Platelet Count 450 Mean Platelet Volume 10.3 Neutrophils (%) (Auto) 55.0 Lymphocytes (%) (Auto) 34.8 Monocytes (%) (Auto) 7.5 Eosinophils (%) (Auto) 2.1 Basophils (%) (Auto) 0.6 Neutrophils # (Auto) 4.6 Lymphocytes # (Auto) 2.9 Monocytes # (Auto) 0.6 Eosinophils # (Auto) 0.2 Basophils # (Auto) 0.1 CBC Comment AUTO DIFF Differential Comment AUTO DIFF CONFIRMED Platelet Estimate NORMAL Platelet Morphology Comment NORMAL Tear Drop Cells 1+ Ovalocytes 2+ Acanthocytes OCC Keratocytes OCC Sodium Level 141 Potassium Level 3.9 Chloride Level 108 Carbon Dioxide Level 23.2 Anion Gap 10 Blood Urea Nitrogen 39 Creatinine 1.21 Estimat Glomerular Filtration 62 Rate Random Glucose 195 Calcium Level 8.2 Magnesium Level 2.4 Total Bilirubin 0.2 Aspartate Amino Transf 23 (AST/SGOT) Alanine Aminotransferase 21 (ALT/SGPT) Alkaline Phosphatase 122 Total Creatine Kinase 153 Creatine Kinase MB 2.2 Troponin I LESS THAN 0.02 B-Type Natriuretic Peptide 37 Total Protein 6.4 Albumin 3.4 Triglycerides Level 151 Lipase 600 Phenytoin (Dilantin) Level 9.9 Urine Color YELLOW Urine Turbidity CLEAR Urine pH 5.5 Urine Specific [place] 1.028 Urine Protein TRACE Urine Glucose (UA) NEG Urine Ketones NEG Urine Occult Blood NEG Urine Nitrite NEG Urine Bilirubin NEG Urine Urobilinogen LESS THAN 2.0 Urine Leukocyte Esterase NEG Urine WBC 1 Urine Squamous Epithelial <1 Cells Urine Hyaline Casts 4 Urine Mucus FEW Microscopic Urinalysis Comment CULT NOT INDICATED Result Diagram: 11/18/1661211/18/16612 Imaging Last Impressions Chest X-Ray 11/18/1648 Signed Impressions: Service Date/Time: Friday, November 18, 2016 07:30 - CONCLUSION: No acute disease. Kip Lezama MD Assessment and Plan Assessment and Plan Mr. Meza is a pleasant 55 year old male who was admitted due to abdominal pain which resolved after a bowel movement in the ED. Patient was able to tolerate diet well. Abdominal pain due to constipation - His Lipase was 600 and along with clinical symptoms, diagnosis of pancreatitis was less likely. - Patient's abdominal pain was likely due to constipation. We observed patient until he was able to eat/drink well. - Patient reported no further abdominal pain. He requested something in addition to Milk of Mag he takes at home. - We subsequently discharged patient. Discharge patient to home Condition on discharge: Improved Regular Diet as tolerated Ad Niurka activity Rx written: Colace 100mg BID. Follow-up with primary care physician within one week. Mila Archer DO November 18, 2016 12:02
[2016-11-18] MEDS ORDERED: PHENYTOIN SODIUM 100 MG CAP PO ONE (12:30)
[2016-11-18 14:00] VITALS: BP 134/81; PULSE 53; RESP 20; TEMP 98; O2SAT 99
[2016-11-18] MEDS ORDERED: COLA100C3 PO (15:13)
[2016-11-18] MEDS ORDERED: INSULIN ASPART SUPPLEMENTAL SCALE SQ SCH (16:00)
[2016-11-18] MEDS ORDERED: INSULIN DETEMIR 100 UNITS/ML VIAL SQ SCH (21:00)
--- NOTE | 2016-11-18 22:41 | EKG ---
Date Performed: 11/18/2016 Time Performed: 06:35:24 PTAGE: 55 years EKG: Sinus rhythm NORMAL ECG PREVIOUS TRACING : 05/31/2016 02.37 Compared to prior tracing no significant change DOCTOR: Ga Reynolds Interpretating Date/Time 11/18/2016 22:39:54
== END 2016-11-18 17:15 | disposition home or self-care (01) ==
LOC: NEPE 06:31 → NEDA 07:58 → NEPFCDU 13:45
PROVIDERS: ADMIT Hospitalist; ATTEND Hospitalist
DX: R07.9 Chest pain, unspecified (principal); M79.601 Pain in right arm; I63.9 Cerebral infarction, unspecified; R06.02 Shortness of breath; Z79.01 Long term (current) use of anticoagulants; R56.9 Unspecified convulsions; I69.349 Monoplegia of lower limb following cerebral infarction affecting unspecified side; Z86.718 Personal history of other venous thrombosis and embolism; I11.9 Hypertensive heart disease without heart failure; E78.5 Hyperlipidemia, unspecified; E11.9 Type 2 diabetes mellitus without complications; F41.9 Anxiety disorder, unspecified; E78.00 Pure hypercholesterolemia, unspecified; K44.9 Diaphragmatic hernia without obstruction or gangrene; G43.909 Migraine, unspecified, not intractable, without status migrainosus; E07.9 Disorder of thyroid, unspecified; Z79.899 Other long term (current) drug therapy; Z79.4 Long term (current) use of insulin; R47.01 Aphasia; R23.8 Other skin changes; K85.90 Acute pancreatitis without necrosis or infection, unspecified; E78.1 Pure hyperglyceridemia; R79.89 Other specified abnormal findings of blood chemistry; K59.00 Constipation, unspecified; I69.351 Hemiplegia and hemiparesis following cerebral infarction affecting right dominant side
CPT/HCPCS: 71010; 80053; 80185; 81001; 82550; 82552; 83690; 83735; 83880; 84478; 84484; 85025; 93005; 99285; G0378; J1650; J7030

== ENCOUNTER 2017-08-15 18:27 | Emergency (ER) | payer MEDICAID ==
[~2017-08-15] VITALS: Ht 170.2 cm; Wt 63.6 kg
[~2017-08-15 18:27] MED LIST changes: +COLA100C3 PO; -OMEP20TA PO; +OMEP20TA93 PO; -OXYB5TAB10 PO; +OXYB5TAB8 PO
[2017-08-15 18:55] VITALS: BP 130/64; PULSE 71; RESP 14; TEMP 98.2; O2SAT 100
[2017-08-15] MEDS ORDERED: SODIUM CHLOR 0.9% 1000 ML INJ 1,000 ML IV ONE (19:30)
--- NOTE | 2017-08-15 19:31 | PD ---
HPI Chief Complaint: Diabetic Time Seen by Provider: 19:25 Travel History International Travel<30 days: No Contact w/Intl Traveler<30days: No Traveled to known affect area: No History of Present Illness HPI 56-year-old male patient with history of diabetes, stroke, presents to the ER today brought in by EMS, apparently mom states that he was looking disoriented at home and she had given him some food, but he wasn't getting better, checked his blood sugar and it was 42, and sent him in. He is currently awake and alert , does not know exactly what happened but he states that he has been having ongoing diarrhea for years. He states that he did get his insulin today but is not sure what time, and states that he did eat a peanut butter sandwich. His mother takes care of his insulin and he does not know how much and when he was given insulin. Modifying Factors: None Associated Signs & Symptoms: Hypoglycemic episode Risk Factors: Diabetic, insulin-dependent PFSH Past Medical History Hx Anticoagulant Therapy: Yes Arthritis: No Asthma: No Anxiety: Yes Depression: No Heart Rhythm Problems: No Cancer: No Cardiovascular Problems: Yes (HTN) High Cholesterol: Yes Chest Pain: No Congestive Heart Failure: No COPD: No Cerebrovascular Accident: Yes Diabetes: Yes Patient Takes Glucophage: Yes Diminished Hearing: No Endocrine: Yes Gastrointestinal Disorders: Yes (PANCREATITIS) GERD: No Genitourinary: No Headaches: Yes Hiatal Hernia: Yes Hypertension: Yes Immune Disorder: No Implanted Vascular Access Dvce: No Kidney Stones: No Musculoskeletal: Yes (RUE) Neurologic: Yes (EEG STUDIES 11/2014) Reproductive: No Respiratory: No Migraines: Yes Renal Failure: No Seizures: Yes Sleep Apnea: No Thyroid Disease: Yes Ulcer: No Tetanus Vaccination: Unknown Influenza Vaccination: No Past Surgical History Abdominal Surgery: Yes (HERNIA REPAIR 08/07/15) Other Surgery: No Social History Alcohol Use: Yes (Occ.) Tobacco Use: No Substance Use: No Allergies-Medications (Allergen,Severity, Reaction): Coded Allergies: morphine (Unverified Allergy, Unknown, 08/15/17) Reported Meds & Prescriptions Reported Meds & Active Scripts Active Colace (Docusate Sodium) 100 Mg Cap 100 Mg PO BID PRN Reported Ditropan (Oxybutynin Chloride) 5 Mg Tab 5 Mg PO Q12HR Xarelto (Rivaroxaban) 20 Mg Tab 20 Mg PO DAILY Vimpat (Lacosamide) 200 Mg Tab 200 Mg PO BID Omeprazole 20 Mg Tab 20 Mg PO DAILY Novolin N Inj (Insulin Human NPH) 1,000 Unit/10 Ml Vial 2 Units SQ TID Mirtazapine 30 Mg Tab 30 Mg PO HS Metformin (Metformin HCl) 1,000 Mg Tab 1,000 Mg PO BIDPC With meals Lorazepam 2 Mg Tab 1 Mg PO HS Lisinopril 10 Mg Tab 10 Mg PO TID Levemir Inj (Insulin Detemir) 1,000 unit/ 10 ML Vial 15 Units SQ HS Do not mix with any other Insulin. Gemfibrozil 600 Mg Tab 600 Mg PO BIDAC Take 30 minutes prior to breakfast and dinner. Dilantin (Phenytoin Extended) 100 Mg Cap 100 Mg PO QID Atorvastatin (Atorvastatin Calcium) 40 Mg Tab 40 Mg PO HS Asacol HD (Mesalamine) 800 Mg Tab 800 Mg PO TID Swallow whole. Take on an empty stomach. Review of Systems Except as stated in HPI: all other systems reviewed are Neg Physical Exam Narrative GENERAL: Well-developed middle age white male patient currently in mild distress. Awake and alert. SKIN: Focused skin assessment warm/dry. HEAD: Atraumatic. Normocephalic. EYES: Pupils equal and round. No scleral icterus. No injection or drainage. ENT: No nasal bleeding or discharge. Mucous membranes pink and moist. NECK: Trachea midline. No JVD. Supple. CARDIOVASCULAR: Regular rate and rhythm. No murmur appreciated. RESPIRATORY: No accessory muscle use. Clear to auscultation. Breath sounds equal bilaterally. GASTROINTESTINAL: Abdomen soft, non-tender, nondistended. Hepatic and splenic margins not palpable. MUSCULOSKELETAL: No obvious deformities. No clubbing. No cyanosis. No edema. NEUROLOGICAL: Awake and alert. No obvious cranial nerve deficits. Normal speech. PSYCHIATRIC: Appropriate mood and affect; insight and judgment normal. Data Data Last Documented VS Vital Signs Date Time Temp Pulse Resp B/P (MAP) Pulse Ox O2 Delivery O2 Flow Rate FiO2 08/15/17 20:46 98.2 85 18 138/88 (105) 98 Room Air Orders Orders Complete Blood Count With Diff (08/15/17 19:21) Comprehensive Metabolic Panel (08/15/17 19:21) Sodium Chlor 0.9% 1000 Ml Inj (Ns 1000 M (08/15/17 19:30) Ed Discharge Order (08/15/17 21:47) Labs Laboratory Tests Test 08/15/17 19:37 White Blood Count 9.8 TH/MM3 Red Blood Count 4.51 MIL/MM3 Hemoglobin 9.1 GM/DL Hematocrit 30.0 % Mean Corpuscular Volume 66.4 FL Mean Corpuscular Hemoglobin 20.1 PG Mean Corpuscular Hemoglobin Concent 30.2 % Red Cell Distribution Width 15.5 % Platelet Count 382 TH/MM3 Mean Platelet Volume 8.9 FL Neutrophils (%) (Auto) 82.8 % Lymphocytes (%) (Auto) 12.1 % Monocytes (%) (Auto) 4.3 % Eosinophils (%) (Auto) 0.4 % Basophils (%) (Auto) 0.4 % Neutrophils # (Auto) 8.2 TH/MM3 Lymphocytes # (Auto) 1.2 TH/MM3 Monocytes # (Auto) 0.4 TH/MM3 Eosinophils # (Auto) 0.0 TH/MM3 Basophils # (Auto) 0.0 TH/MM3 CBC Comment AUTO DIFF Differential Comment AUTO DIFF CONFIRMED Platelet Estimate NORMAL Platelet Morphology Comment NORMAL Tear Drop Cells 1+ Ovalocytes 1+ Blood Urea Nitrogen 33 MG/DL Creatinine 1.40 MG/DL Random Glucose 144 MG/DL Total Protein 6.8 GM/DL Albumin 3.6 GM/DL Calcium Level 8.1 MG/DL Alkaline Phosphatase 107 U/L Aspartate Amino Transf (AST/SGOT) 20 U/L Alanine Aminotransferase (ALT/SGPT) 26 U/L Total Bilirubin 0.3 MG/DL Sodium Level 139 MEQ/L Potassium Level 4.1 MEQ/L Chloride Level 108 MEQ/L Carbon Dioxide Level 22.5 MEQ/L Anion Gap 9 MEQ/L Estimat Glomerular Filtration Rate 52 ML/MIN [facility] Medical Decision Making Medical Screen Exam Complete: Yes Emergency Medical Condition: Yes Medical Record Reviewed: Yes Interpretation(s) Laboratory Tests Test 08/15/17 19:37 Hemoglobin 9.1 GM/DL (13.0-17.0) Hematocrit 30.0 % (39.0-51.0) Mean Corpuscular Volume 66.4 FL (80.0-100.0) Mean Corpuscular Hemoglobin 20.1 PG (27.0-34.0) Mean Corpuscular Hemoglobin Concent 30.2 % (32.0-36.0) Neutrophils (%) (Auto) 82.8 % (16.0-70.0) Neutrophils # (Auto) 8.2 TH/MM3 (1.8-7.7) Tear Drop Cells 1+ (NORMAL) Ovalocytes 1+ (NORMAL) Blood Urea Nitrogen 33 MG/DL (7-18) Creatinine 1.40 MG/DL (0.60-1.30) Random Glucose 144 MG/DL (74-106) Calcium Level 8.1 MG/DL (8.5-10.1) Chloride Level 108 MEQ/L (98-107) Estimat Glomerular Filtration Rate 52 ML/MIN (>89) Differential Diagnosis Hypoglycemic episodes: Dehydration versus renal failure versus metabolic issues versus overmedication Narrative Course Patient was allowed T dinner while in the ER, and reevaluation of his blood sugar was 148. He apparently had been given a shot of insulin at around 6:30 by his mother, stated to be 7 units of NovoLog. At this point, the insulin should've gone out of his sister him and he appears to be doing well and blood sugar appears to be fairly and check. My plan would be to release the patient with follow-up to primary care physician. He should try to eat and drink on a consistent basis especially after taking his insulin. Return for any new issues as needed. The plan was discussed with him and he states understanding. Diagnosis Primary Impression: Hypoglycemic reaction Additional Impression: Mild dehydration Additional Instructions: Make sure you eat and drink after taking the insulin. Get blood sugar checks throughout the day and discussed the episode with your primary care doctor. Med/Other Pt SpecificInfo: Med Stopped (do not take your insulin tonight) Disposition: 01 DISCHARGE HOME Condition: Stable Gladis Barger MD Aug 15, 2017 19:31
[2017-08-15 19:42] LABS: AUTOMATED NEUTROPHIL # 8.2 TH/MM3 (1.8-7.7); BASOPHIL % 0.4 % (0.0-2.0); EOSINOPHIL % 0.4 % (0.0-4.0); HEMOGLOBIN 9.1 GM/DL (13.0-17.0); LYMPH % 12.1 % (9.0-44.0); LYMPHOCYTE # 1.2 TH/MM3 (1.0-4.8); MEAN CELL VOLUME 66.4 FL (80.0-100.0); MEAN CORPUSCULAR HEMOGLOBIN 20.1 PG (27.0-34.0); MEAN CORPUSCULAR HGB CONC 30.2 % (32.0-36.0); MEAN PLATELET VOLUME 8.9 FL (7.0-11.0); MONO % 4.3 % (0.0-8.0); MONOCYTE # 0.4 TH/MM3 (0-0.9); NEUT % 82.8 % (16.0-70.0); PLATELET COUNT 382 TH/MM3 (150-450); RED BLOOD COUNT 4.51 MIL/MM3 (4.50-5.90); RED CELL DISTRIBUTION WIDTH 15.5 % (11.6-17.2); WHITE BLOOD COUNT 9.8 TH/MM3 (4.0-11.0)
[2017-08-15 19:52] LABS: CHLORIDE 108 MEQ/L (98-107); SODIUM (NA) 139 MEQ/L (136-145)
[2017-08-15 19:55] LABS: ALBUMIN 3.6 GM/DL (3.4-5.0); CALCIUM 8.1 MG/DL (8.5-10.1)
[2017-08-15 19:56] LABS: BICARBONATE 22.5 MEQ/L (21.0-32.0); BLOOD UREA NITROGEN 33 MG/DL (7-18); GLUCOSE,RANDOM 144 MG/DL (74-106)
[2017-08-15 19:58] LABS: OVALOCYTES 1+ (NORMAL); TEARDROP RBCS 1+ (NORMAL)
[2017-08-15 19:59] LABS: ALT (GPT) 26 U/L (12-78); AST (GOT) 20 U/L (15-37); GLOMERULAR FILTRATION RATE 52 ML/MIN (>89)
[2017-08-15 20:00] LABS: TOTAL BILIRUBIN ADULT 0.3 MG/DL (0.2-1.0); TOTAL PROTEIN 6.8 GM/DL (6.4-8.2)
[2017-08-15 20:02] LABS: ALKALINE PHOSPHATASE 107 U/L (45-117)
[2017-08-15 20:46] VITALS: BP 138/88; PULSE 85; RESP 18; TEMP 98.2; O2SAT 98
[2017-08-15 22:43] VITALS: BP 162/88; TEMP 98.2
== END 2017-08-15 22:44 | disposition home or self-care (01) ==
LOC: PHED 18:27
DX: E11.649 Type 2 diabetes mellitus with hypoglycemia without coma (principal); E86.0 Dehydration; I10 Essential (primary) hypertension; E78.00 Pure hypercholesterolemia, unspecified; F41.9 Anxiety disorder, unspecified; Z86.73 Personal history of transient ischemic attack (TIA), and cerebral infarction without residual deficits; Z88.5 Allergy status to narcotic agent; Z79.4 Long term (current) use of insulin; Z79.84 Long term (current) use of oral hypoglycemic drugs; Z79.899 Other long term (current) drug therapy
CPT/HCPCS: 80053; 85025; 96360; 96361; 99284; J7030

== ENCOUNTER 2017-10-24 08:56 | Emergency (ER) | payer MEDICAID ==
[~2017-10-24] VITALS: Ht 170.2 cm; Wt 67.7 kg
[2017-10-24 09:00] VITALS: BP 125/66; PULSE 91; RESP 16; TEMP 97.6; O2SAT 96
--- NOTE | 2017-10-24 09:15 | PD ---
HPI Chief Complaint: Pain: Acute or Chronic Time Seen by Provider: 09:06 Travel History International Travel<30 days: No Contact w/Intl Traveler<30days: No Traveled to known affect area: No History of Present Illness HPI 56-year-old male presents to the emergency department for evaluation of left hand pain that started 1 week ago. He states the pain started after pulling weeds. He denies a traumatic injury. He states the current pain is 9/10 in the left second and third MCP joints. Patient denies any history of similar pain in the past. He states the pain is without radiation. No fevers. No erythema. He reports history of CVA and diabetes. Exacerbating factor is movement. Alleviating factors keeping the hand still. He states he takes ibuprofen every morning for the pain without relief. Mild severity. PFSH Past Medical History Hx Anticoagulant Therapy: Yes (XARELTO) Arthritis: No Asthma: No Anxiety: Yes Depression: No Heart Rhythm Problems: No Cancer: No Cardiovascular Problems: Yes (HTN, CHOL) High Cholesterol: Yes Chest Pain: No Congestive Heart Failure: No COPD: No Cerebrovascular Accident: Yes (CVA) Diabetes: Yes Diminished Hearing: No Endocrine: Yes Gastrointestinal Disorders: Yes (PANCREATITIS) GERD: No Genitourinary: No Headaches: Yes Hiatal Hernia: Yes Hypertension: Yes Immune Disorder: No Implanted Vascular Access Dvce: No Kidney Stones: No Musculoskeletal: Yes (RUE) Neurologic: Yes (EEG STUDIES 11/2014) Reproductive: No Respiratory: No Migraines: Yes Renal Failure: No Seizures: Yes Sleep Apnea: No Thyroid Disease: Yes Ulcer: No Past Surgical History Abdominal Surgery: Yes (HERNIA REPAIR 08/07/15) Other Surgery: No Social History Alcohol Use: Yes (Occ.) Tobacco Use: No Substance Use: No Allergies-Medications (Allergen,Severity, Reaction): Coded Allergies: morphine (Unverified Allergy, Unknown, 10/24/17) Reported Meds & Prescriptions Reported Meds & Active Scripts Active Reported Ditropan (Oxybutynin Chloride) 5 Mg Tab 5 Mg PO Q12HR Xarelto (Rivaroxaban) 20 Mg Tab 20 Mg PO DAILY Vimpat (Lacosamide) 200 Mg Tab 200 Mg PO BID Omeprazole 20 Mg Tab 20 Mg PO DAILY Novolin N Inj (Insulin Human NPH) 1,000 Unit/10 Ml Vial 2 Units SQ TID Mirtazapine 30 Mg Tab 30 Mg PO HS Metformin (Metformin HCl) 1,000 Mg Tab 1,000 Mg PO BIDPC With meals Lorazepam 2 Mg Tab 1 Mg PO HS Lisinopril 10 Mg Tab 10 Mg PO TID Levemir Inj (Insulin Detemir) 1,000 unit/ 10 ML Vial 15 Units SQ HS Do not mix with any other Insulin. Gemfibrozil 600 Mg Tab 600 Mg PO BIDAC Take 30 minutes prior to breakfast and dinner. Dilantin (Phenytoin Extended) 100 Mg Cap 100 Mg PO QID Atorvastatin (Atorvastatin Calcium) 40 Mg Tab 40 Mg PO HS Asacol HD (Mesalamine) 800 Mg Tab 800 Mg PO TID Swallow whole. Take on an empty stomach. Review of Systems Except as stated in HPI: all other systems reviewed are Neg Physical Exam Narrative GENERAL: Well-nourished, well-developed male patient, afebrile. SKIN: Focused skin assessment warm/dry. HEAD: Normocephalic. Atraumatic. EYES: No scleral icterus. No injection or drainage. NECK: Supple, trachea midline. No JVD or lymphadenopathy. CARDIOVASCULAR: Regular rate and rhythm without murmurs, gallops, or rubs. Left radial pulse is 2+ RESPIRATORY: Breath sounds equal bilaterally. No accessory muscle use. Lung sounds are clear to auscultation. MUSCULOSKELETAL: No cyanosis, or edema. Patient has tenderness to palpation over the left second and third MCP joints. No erythema. He has full flexion- extension of all digits. He has full sensation to the distal left upper extremity. Data Data Last Documented VS Vital Signs Date Time Temp Pulse Resp B/P (MAP) Pulse Ox O2 Delivery O2 Flow Rate FiO2 10/24/17 09:00 97.6 91 16 125/66 (85) 96 Orders Orders Hand, Complete ([id number]) (10/24/17 ) [facility] Medical Decision Making Medical Screen Exam Complete: Yes Emergency Medical Condition: Yes Medical Record Reviewed: Yes Interpretation(s) x-ray of the left hand - CONCLUSION: 1. No acute fracture or dislocation. Differential Diagnosis Arthritis versus sprain versus strain versus fracture Narrative Course 56-year-old male presents to the emergency department for evaluation of left hand pain for 1 week without significant injury. X-ray of the left hand is ordered and pending. X-ray of the left hand shows no acute fracture or dislocation. Patient instructed Tylenol every 4 hours as needed for pain. He is to follow- up with primary care physician. The patient was discharged in stable condition with instructions, including return instructions and follow up instructions. Diagnosis Primary Impression: Left hand pain Referrals: Primary Care Physician call for appointment Patient Instructions: General Instructions, Hand Sprain (ED) Additional Instructions: Ice for 20 minutes 4-5 times daily Take [id number] Tylenol every 4 hours as needed for pain. Follow-up with a primary care physician. Return to the emergency department for any acute worsening of symptoms. Med/Other Pt SpecificInfo: No Change to Meds Disposition: 01 DISCHARGE HOME Condition: Stable JeffRhonda Oct 24, 2017 09:15
--- NOTE | 2017-10-24 10:10 | RADRPT ---
EXAM DATE/TIME: 10/24/2017 09:16 [place] COMPARISON: No previous studies available for comparison. INDICATIONS : Left hand pain primarily in 2nd & 3rd MCP joints x 1 week after pulling weeds. MEDICAL HISTORY : Hypertension. Hypercholesterolemia. Pancreatitis. Thyroid disease. CVA. Seizures. Hiatial hernia. Diabetic. SURGICAL HISTORY : Hernia repair. ENCOUNTER: Initial ACUITY: 1 week PAIN SCORE: 9/10 LOCATION: Left hand FINDINGS: Three view examination of the left hand demonstrates no soft tissue swelling, dislocation, or fractur e. The carpal bones appear intact. The interphalangeal and metacarpophalangeal joints are intact. Bony mineralization is normal. CONCLUSION: 1. No acute fracture or dislocation. Lazaro Urias MD on October 24, 2017 at 10:07 Board Certified Radiologist. This report was verified electronically.
== END 2017-10-24 10:37 | disposition home or self-care (01) ==
LOC: PHEFT 08:56
DX: M79.642 Pain in left hand (principal); E11.9 Type 2 diabetes mellitus without complications; F41.9 Anxiety disorder, unspecified; I10 Essential (primary) hypertension; E78.00 Pure hypercholesterolemia, unspecified; E07.9 Disorder of thyroid, unspecified; Z86.69 Personal history of other diseases of the nervous system and sense organs; Z87.19 Personal history of other diseases of the digestive system; Z86.73 Personal history of transient ischemic attack (TIA), and cerebral infarction without residual deficits
CPT/HCPCS: 73130; 99283

== ENCOUNTER 2017-12-15 15:13 | Emergency (ER) | payer MEDICAID ==
[~2017-12-15] VITALS: Ht 170.2 cm; Wt 70.0 kg
[~2017-12-15 15:13] MED LIST changes: -COLA100C3 PO
[2017-12-15 15:20] VITALS: BP 112/52; PULSE 80; RESP 16; TEMP 98.2; O2SAT 98
[2017-12-15] MEDS ORDERED: SODIUM CHLORIDE 0.9% FLUSH 10 ML FLUSH IVF PRN (16:15)
--- NOTE | 2017-12-15 16:22 | PD ---
HPI Chief Complaint: Fall Time Seen by Provider: 15:57 Travel History International Travel<30 days: No Contact w/Intl Traveler<30days: No Traveled to known affect area: No History of Present Illness HPI Patient is a 56-year-old male with history of CVA currently taking Xarelto, presents the emergency room for evaluation of pains. Patient reports that yesterday, he suffered a mechanical fall outside of his home onto the cement ground. Reports that he hit his head and the right side of his body on the cement. Denied LOC. Reports that he did lay on the ground for about 30 minutes prior to getting up off the ground. Reports that his head and his whole body is achy and hurts him. Denies vision changes, denies n/v. Denies chest pain/sob. PFSH Past Medical History Hx Anticoagulant Therapy: Yes Arthritis: No Asthma: No Anxiety: Yes Depression: No Heart Rhythm Problems: No Cancer: No Cardiovascular Problems: Yes (HTN, CHOL) High Cholesterol: Yes Chest Pain: No Congestive Heart Failure: No COPD: No Cerebrovascular Accident: Yes Diabetes: Yes Patient Takes Glucophage: Yes Diminished Hearing: No Endocrine: Yes Gastrointestinal Disorders: Yes (PANCREATITIS) GERD: No Genitourinary: No Headaches: Yes Hiatal Hernia: Yes Hypertension: Yes Immune Disorder: No Implanted Vascular Access Dvce: No Kidney Stones: No Musculoskeletal: Yes (RUE) Neurologic: Yes Reproductive: No Respiratory: No Migraines: Yes Renal Failure: No Seizures: Yes Sleep Apnea: No Thyroid Disease: Yes Ulcer: No Past Surgical History Abdominal Surgery: Yes (HERNIA REPAIR 08/07/15) Other Surgery: No Social History Alcohol Use: Yes (Occ.) Tobacco Use: No Substance Use: No Allergies-Medications (Allergen,Severity, Reaction): Coded Allergies: morphine (Unverified Allergy, Unknown, 12/15/17) Reported Meds & Prescriptions Reported Meds & Active Scripts Active Reported Ditropan (Oxybutynin Chloride) 5 Mg Tab 5 Mg PO Q12HR Xarelto (Rivaroxaban) 20 Mg Tab 20 Mg PO DAILY Vimpat (Lacosamide) 200 Mg Tab 200 Mg PO BID Omeprazole 20 Mg Tab 20 Mg PO DAILY Novolin N Inj (Insulin Human NPH) 1,000 Unit/10 Ml Vial 2 Units SQ TID Mirtazapine 30 Mg Tab 30 Mg PO HS Metformin (Metformin HCl) 1,000 Mg Tab 1,000 Mg PO BIDPC With meals Lorazepam 2 Mg Tab 1 Mg PO HS Lisinopril 10 Mg Tab 10 Mg PO TID Levemir Inj (Insulin Detemir) 1,000 unit/ 10 ML Vial 15 Units SQ HS Do not mix with any other Insulin. Gemfibrozil 600 Mg Tab 600 Mg PO BIDAC Take 30 minutes prior to breakfast and dinner. Dilantin (Phenytoin Extended) 100 Mg Cap 100 Mg PO QID Atorvastatin (Atorvastatin Calcium) 40 Mg Tab 40 Mg PO HS Asacol HD (Mesalamine) 800 Mg Tab 800 Mg PO TID Swallow whole. Take on an empty stomach. Review of Systems General / Constitutional: No: Fever Eyes: No: Visual changes HENT: Positive: Headaches Cardiovascular: No: Chest Pain or Discomfort Respiratory: No: Shortness of Breath Gastrointestinal: No: Abdominal Pain Genitourinary: No: Dysuria Musculoskeletal: No: Pain Skin: No Rash Neurologic: Positive: Headache, No: Weakness Psychiatric: No: Depression Endocrine: No: Polydipsia Hematologic/Lymphatic: No: Easy Bruising Physical Exam Narrative GENERAL: Moderate distress SKIN: Focused skin assessment warm/dry. HEAD: Atraumatic. Normocephalic. EYES: Pupils equal and round. No scleral icterus. No injection or drainage. ENT: No nasal bleeding or discharge. Mucous membranes pink and moist. NECK: Trachea midline. No JVD. CARDIOVASCULAR: Regular rate and rhythm. No murmur appreciated. RESPIRATORY: No accessory muscle use. Clear to auscultation. Breath sounds equal bilaterally. GASTROINTESTINAL: Abdomen soft, non-tender, nondistended. Hepatic and splenic margins not palpable. MUSCULOSKELETAL: No obvious deformities. No clubbing. No cyanosis. No edema. NEUROLOGICAL: Awake and alert. No obvious cranial nerve deficits. Motor grossly within normal limits. Normal speech. PSYCHIATRIC: Anxious mood and affect; insight and judgment normal. Data Data Last Documented VS Vital Signs Date Time Temp Pulse Resp B/P (MAP) Pulse Ox O2 Delivery O2 Flow Rate FiO2 12/15/17 15:20 98.2 80 16 112/52 (72) 98 Orders Orders Basic Metabolic Panel (Bmp) (12/15/17 16:06) Complete Blood Count With Diff (12/15/17 16:06) Prothrombin Time / Inr (Pt) (12/15/17 16:06) Act Partial Throm Time (Ptt) (12/15/17 16:06) Ct Brain W/O Iv Contrast(Rout) (12/15/17 16:06) Ct Cerv Spine W/O Contrast (12/15/17 16:06) Ct Thorax/ Chest W Iv Contrast (12/15/17 16:06) Iv Access Insert/Monitor (12/15/17 16:06) Ecg Monitoring (12/15/17 16:06) Oximetry (12/15/17 16:06) Sodium Chloride 0.9% Flush (Ns Flush) (12/15/17 16:15) Ct Abd/Pel W Iv Contrast(Rout) (12/15/17 16:06) Drug Screen, Random Urine (12/15/17 16:06) MDM Medical Decision Making Medical Screen Exam Complete: Yes Emergency Medical Condition: Yes Medical Record Reviewed: Yes Interpretation(s) Vital Signs Date Time Temp Pulse Resp B/P (MAP) Pulse Ox O2 Delivery O2 Flow Rate FiO2 12/15/17 15:20 98.2 80 16 112/52 (72) 98 Differential Diagnosis Intracranial hemorrhage, cervical spine fracture, rib fractures, pneumothorax, rib strain Narrative Course Patient is a 56-year-old male who presents the emergency room for evaluation of headache as well as body pain after he suffered a mechanical fall last night. Patient is currently on Xarelto as he has history of CVA in the past. On exam, patient with no obvious deformities, no obvious bruising, patient is tender to touch throughout his chest and abdomen screaming "ow" on examination. Trauma scans were ordered. During the course of the patients emergency department visit, the patients history, examination, and differential diagnosis were reviewed with the patient. The patient was placed on a business office technician with oximetry and frequent blood pressure monitoring. The patient had an IV access obtained and blood work sent for analysis. The patients laboratory studies were reviewed and remarkable for [-]. Radiology studies were reviewed and remarkable for [-] Angi Toth DO December 15, 2017 16:22
[2017-12-15 16:51] LABS: AUTOMATED NEUTROPHIL # 4.2 TH/MM3 (1.8-7.7); BASOPHIL # 0.1 TH/MM3 (0-0.2); BASOPHIL % 0.8 % (0.0-2.0); EOSINOPHIL # 0.1 TH/MM3 (0-0.4); EOSINOPHIL % 0.9 % (0.0-4.0); HEMATOCRIT 29.2 % (39.0-51.0); HEMOGLOBIN 9.3 GM/DL (13.0-17.0); LYMPH % 31.6 % (9.0-44.0); LYMPHOCYTE # 2.2 TH/MM3 (1.0-4.8); MEAN CELL VOLUME 63.6 FL (80.0-100.0); MEAN CORPUSCULAR HEMOGLOBIN 20.4 PG (27.0-34.0); MEAN PLATELET VOLUME 9.2 FL (7.0-11.0); MONOCYTE # 0.4 TH/MM3 (0-0.9); NEUT % 60.7 % (16.0-70.0); PLATELET COUNT 472 TH/MM3 (150-450); RED BLOOD COUNT 4.59 MIL/MM3 (4.50-5.90); RED CELL DISTRIBUTION WIDTH 15.8 % (11.6-17.2); WHITE BLOOD COUNT 6.9 TH/MM3 (4.0-11.0)
[2017-12-15 17:00] LABS: INTERNATIONAL NORMALIZED RATIO 1.1 RATIO; PROTHROMBIN TIME - PATIENT 10.7 SEC (9.8-11.6)
[2017-12-15 17:03] LABS: BICARBONATE 23.7 MEQ/L (21.0-32.0); CALCIUM 8.8 MG/DL (8.5-10.1); CREATININE 1.26 MG/DL (0.60-1.30)
[2017-12-15 19:18] VITALS: BP 123/69; PULSE 66; RESP 16; O2SAT 98
--- NOTE | 2017-12-15 19:36 | RADRPT ---
EXAM DATE: 12/15/2017 7:32 PM EDT AGE/SEX: 56 years / Male INDICATIONS: Trauma, fall, hit head, dizziness CLINICAL DATA: This is the patient's initial encounter. Patient reports that signs and symptoms have been present for 2 days and indicates a pain score of 10/10. MEDICAL/SURGICAL HISTORY: Cerebrovascular disease. Cardiovascular disease. Diverticulitis. Hyper tension, diabetes, pancreatitis, hiatal hernia, seizure None. RADIATION DOSE: 56.70 CTDI (mGy) COMPARISON: [facility], CT BRAIN W/O CONTRAST, 05/31/2016. . TECHNIQUE: CT of the head without contrast. Using automated exposure control and adjustment of the mA and/or kV according to patient size, radiation dose was kept as low as reasonably achievable to ob tain optimal diagnostic quality images. FINDINGS: Compare May 2016. There is a remote left MCA infarct. No acute intracranial hemorrhage, mass eff ect or shift. No hydrocephalus. No acute bony abnormalities. CONCLUSION: 1. Remote left MCA infarct stable since May 2016. No acute findings. Electronically signed by: Rajinder Tong MD 12/15/2017 7:35 PM EDT
[2017-12-15] MEDS ORDERED: IOHEXOL 350 MG/ML 10 ML VIAL (for RAD DIAG) IVCONTRAST ONE (19:43)
--- NOTE | 2017-12-15 19:47 | RADRPT ---
EXAM DATE: 12/15/2017 7:34 PM EDT AGE/SEX: 56 years / Male INDICATIONS: Trauma, fall CLINICAL DATA: This is the patient's initial encounter. Patient reports that signs and symptoms have been present for 2 days and indicates a pain score of 10/10. MEDICAL/SURGICAL HISTORY: Cerebrovascular disease. Cardiovascular disease. Diverticulitis. H ypertension, diabetes, pancreatitis, hiatal hernia, seizure None. RADIATION DOSE: 16.93 CTDI (mGy) COMPARISON: [facility], CT CERVICAL SPINE W/O CONTRAST, 02/10/2016. . TECHNIQUE: Contiguous axial images were obtained using helical multirow detector technique. The vol umetric data was post-processed with multiplanar reconstruction in oblique axial, sagittal, and coron al planes. Using automated exposure control and adjustment of the mA and/or kV according to patient s ize, radiation dose was kept as low as reasonably achievable to obtain optimal diagnostic quality amairani ges. FINDINGS: No acute fracture or spondylolisthesis. No prevertebral soft tissue swelling is present. Mild to mode rate degenerative disc disease is noted. CONCLUSION: 1. No acute findings. Degenerative disc disease. Electronically signed by: Rajinder Tong MD 12/15/2017 7:46 PM EDT
--- NOTE | 2017-12-15 19:49 | RADRPT ---
EXAM DATE: 12/15/2017 7:46 PM EDT AGE/SEX: 56 years / Male INDICATIONS: Trauma, fall CLINICAL DATA: This is the patient's initial encounter. Patient reports that signs and symptoms have been present for 2 days and indicates a pain score of 10/10. MEDICAL/SURGICAL HISTORY: Cardiovascular disease. Cerebrovascular disease. Diverticulitis. Hyper tension, diabetes, hiatal hernia, pancreatitis, seizure None. RADIATION DOSE: 8.11 CTDI (mGy) ; Combined studies COMPARISON: No prior [place] exams available for comparison. TECHNIQUE: Multiple contiguous axial images were obtained through the chest during bolus infusion of 93 ml Omnipaque 350 (iohexol) nonionic water-soluble contrast as a cumulative dose for multiple exa ms. Images were obtained in suspended respiration using multiple row detector helical technique. U sing automated exposure control and adjustment of the mA and/or kV according to patient size, radiati on dose was kept as low as reasonably achievable to obtain optimal diagnostic quality images. FINDINGS: No lung consolidation. No pleural or pericardial effusion. Linear atelectasis or scarring at the lung bases. No acute bony abnormalities. CONCLUSION: 1. Negative for acute intrathoracic injury. Electronically signed by: Rajinder Tong MD 12/15/2017 7:47 PM EDT
--- NOTE | 2017-12-15 19:51 | RADRPT ---
EXAM DATE: 12/15/2017 7:44 PM EDT AGE/SEX: 56 years / Male INDICATIONS: Trauma, fall, right side flank pain CLINICAL DATA: This is the patient's initial encounter. Patient reports that signs and symptoms have been present for 2 days and indicates a pain score of 10/10. MEDICAL/SURGICAL HISTORY: Cardiovascular disease. Cerebrovascular disease. Diverticulitis. H ypertension, diabetes, hiatal hernia, pancreatitis, seizure None. ORAL CONTRAST: No oral contrast ingested. RADIATION DOSE: 8.11 CTDI (mGy) ; Combined studies COMPARISON: [facility], CT ABDOMEN & PELVIS W CONTRAST, 10/15/2016. . TECHNIQUE: Multiple contiguous axial images were obtained through the abdomen and pelvis following b olus infusion of 93 ml Omnipaque 350 (iohexol) nonionic water-soluble contrast as a cumulative dose for multiple exams. No oral contrast ingested. Using automated exposure control and adjustment of t he mA and/or kV according to patient size, the radiation dose was kept as low as reasonably achievabl e to obtain optimal diagnostic quality images. FINDINGS: Mild fatty liver. No acute findings in the spleen, adrenals, kidneys or pancreas. No free fluid or fr ee air. No bowel obstruction. No pelvic masses. No acute bony abnormalities identified. CONCLUSION: 1. Negative for acute injury in the abdomen and pelvis. Electronically signed by: Rajinder Tong MD 12/15/2017 7:50 PM EDT
--- NOTE | 2017-12-15 19:59 | PD ---
Physical Exam Narrative Patient was seen by ED physician and signed out to me. Data Data Last Documented VS Vital Signs Date Time Temp Pulse Resp B/P (MAP) Pulse Ox O2 Delivery O2 Flow Rate FiO2 12/15/17 19:18 66 16 123/69 (87) 98 Room Air 12/15/17 15:20 98.2 Orders Orders Basic Metabolic Panel (Bmp) (12/15/17 16:06) Complete Blood Count With Diff (12/15/17 16:06) Prothrombin Time / Inr (Pt) (12/15/17 16:06) Act Partial Throm Time (Ptt) (12/15/17 16:06) Ct Brain W/O Iv Contrast(Rout) (12/15/17 16:06) Ct Cerv Spine W/O Contrast (12/15/17 16:06) Ct Thorax/ Chest W Iv Contrast (12/15/17 16:06) Iv Access Insert/Monitor (12/15/17 16:06) Ecg Monitoring (12/15/17 16:06) Oximetry (12/15/17 16:06) Sodium Chloride 0.9% Flush (Ns Flush) (12/15/17 16:15) Ct Abd/Pel W Iv Contrast(Rout) (12/15/17 16:06) Drug Screen, Random Urine (12/15/17 16:06) Iohexol 350 Inj (Omnipaque 350 Inj) (12/15/17 19:43) Labs Laboratory Tests Test 12/15/17 16:30 12/15/17 19:10 White Blood Count 6.9 TH/MM3 Red Blood Count 4.59 MIL/MM3 Hemoglobin 9.3 GM/DL Hematocrit 29.2 % Mean Corpuscular Volume 63.6 FL Mean Corpuscular Hemoglobin 20.4 PG Mean Corpuscular Hemoglobin Concent 32.0 % Red Cell Distribution Width 15.8 % Platelet Count 472 TH/MM3 Mean Platelet Volume 9.2 FL Neutrophils (%) (Auto) 60.7 % Lymphocytes (%) (Auto) 31.6 % Monocytes (%) (Auto) 6.0 % Eosinophils (%) (Auto) 0.9 % Basophils (%) (Auto) 0.8 % Neutrophils # (Auto) 4.2 TH/MM3 Lymphocytes # (Auto) 2.2 TH/MM3 Monocytes # (Auto) 0.4 TH/MM3 Eosinophils # (Auto) 0.1 TH/MM3 Basophils # (Auto) 0.1 TH/MM3 CBC Comment DIFF FINAL Differential Comment Prothrombin Time 10.7 SEC Prothromb Time International Ratio 1.1 RATIO Activated Partial Thromboplast Time 23.3 SEC Blood Urea Nitrogen 60 MG/DL Creatinine 1.26 MG/DL Random Glucose 104 MG/DL Calcium Level 8.8 MG/DL Sodium Level 143 MEQ/L Potassium Level 5.4 MEQ/L Chloride Level 112 MEQ/L Carbon Dioxide Level 23.7 MEQ/L Anion Gap 7 MEQ/L Estimat Glomerular Filtration Rate 59 ML/MIN Urine Opiates Screen NEG Urine Barbiturates Screen NEG Urine Amphetamines Screen NEG Urine Benzodiazepines Screen NEG Urine Cocaine Screen NEG Urine Cannabinoids Screen POS MDM Medical Record Reviewed: Yes Supervised Visit with ROGER: No Interpretation(s) Last Impressions Head CT 12/15/171605 Signed Impressions: CONCLUSION: 1. Remote left MCA infarct stable since May 2016. No acute findings. Chest CT 12/15/17 160 Signed Impressions: CONCLUSION: 1. Negative for acute intrathoracic injury. Cervical Spine CT 12/15/171605 Signed Impressions: CONCLUSION: 1. No acute findings. Degenerative disc disease. Abdomen/Pelvis CT 12/15/17 160 Signed Impressions: CONCLUSION: 1. Negative for acute injury in the abdomen and pelvis. 1958 PM. CBC WBC 6.9. Hemoglobin 9.3 hematocrit 29.2. MCV 63.6. Potassium 5.4. Chloride 112. BUN 60. Creatinine 1.26. GFR 59. Narrative Course 56-year-old male being evaluated after a fall. Patient has elevated BUN more than usual compared to levels in the past. Patient states that he has been eating well. Patient denies any black or red stool. Patient denies any GI bleed problem. Diagnosis Primary Impression: Closed head injury Qualified Codes: S09.90XA - Unspecified injury of head, initial encounter Additional Impression: Multiple contusions Patient Instructions: General Instructions Additional Instruction: Head trauma instructions given. Robaxin as needed for pain. Follow-up with personal physician. Return if worse. Med/Other Pt SpecificInfo: Prescription(s) given Scripts Methocarbamol (Robaxin) 750 Mg Tab 750 MG PO QID for Muscle Spasm, #40 TAB 0 Refills Prov: Alexander Miles MD 12/15/17 Disposition: 01 DISCHARGE HOME Condition: Stable Alexander Miles MD December 15, 2017 19:59
[2017-12-15] MEDS ORDERED: ROBA750T PO (20:09)
== END 2017-12-15 20:29 | disposition home or self-care (01) ==
LOC: NEPD 15:13
DX: S09.90XA Unspecified injury of head, initial encounter (principal); W19.XXXA Unspecified fall, initial encounter; F41.9 Anxiety disorder, unspecified; E78.00 Pure hypercholesterolemia, unspecified; E11.9 Type 2 diabetes mellitus without complications; I10 Essential (primary) hypertension; E07.9 Disorder of thyroid, unspecified; Z86.73 Personal history of transient ischemic attack (TIA), and cerebral infarction without residual deficits; Z79.01 Long term (current) use of anticoagulants
CPT/HCPCS: 70450; 71260; 72125; 74177; 80048; 80307; 85025; 85610; 85730; 99284; Q9967